=== PATIENT | female | born 1995 | race Caucasian/White ===

== ENCOUNTER → 2017-01-11 | Outpatient (CLI) | payer BC ==
--- NOTE | 2017-01-11 15:21 | Diagnostic Imaging Report ---
INDICATION: survey. TECHNIQUE: Multiple real-time grayscale images were obtained over the gravid uterus. COMPARISON: None. FINDINGS: The heart rate is 149 beats per minute. The placenta is lateral and to the left with no placenta previa. The cervix is 5.7 cm in length and it appears closed. There is no ventriculomegaly, the posterior fossa appears normal, the four-chamber view, the kidneys, cord insertion, urinary bladder, and two umbilical arteries are seen. The stomach is visualized. There is poor visualization of the spine related to position. Biometrical measurements are as follows: Biparietal 5.2 cm, age 21 weeks 6 days. At higher than 98 percentile. Head circumference 18.1 cm, age 20 weeks 4 days, at 71 percentile. Abdominal circumference 15.5 cm, age 20 weeks 5 days, at 71 percentile. Femur length 3.3 cm, age 20 weeks 2 days, at 55 percentile. Sonographic estimate age: 20 weeks 6 days. This compares to a gestational age of 19 weeks and 6 days based on provided ZENA of 06/01/2017. Sonographic estimated date of delivery: 05/25/17. Estimated Weight: 359 gm (+/- 52 gm). LMP percentile: 82%. heart rate: 149 beats per minute. number: 1 of 1. IMPRESSION: The spine is not well seen due to position. A followup exam within 2 weeks is suggested to reevaluate. Dictated by: Dictated on workstation # [id number]
== END ==
LOC: RAD 14:03
PROVIDERS: ATTEND Obstetrics & Gynecology
DX: Z36 Encounter for antenatal screening of mother (principal); Z3A.20 20 weeks gestation of pregnancy
CPT/HCPCS: 76805

== ENCOUNTER 2017-05-29 18:52 | Inpatient (IN) | payer BC, OTHER ==
[~2017-05-29] VITALS: Ht 167.6 cm; Wt 84.4 kg
[2017-05-29 19:10] VITALS: BP 122/79
[2017-05-29 19:30] VITALS: BP 132/80
[2017-05-29] MEDS ORDERED: MINERAL OIL CONCENTRATE 99.9% 15 ML UDC TOP PRN (19:30)
[2017-05-29] MEDS ORDERED: TERBUTALINE INJ 1 MG/ML (BRETHINE) AMP SC PRN (19:30)
[2017-05-29] MEDS ORDERED: FAMOTIDINE 20MG/2ML IV (PEPCID) IVP ONE (19:30)
[2017-05-29] MEDS ORDERED: ONDANSETRON 4 MG/2 ML (SDV) Z0FRAN IVP PRN (19:30)
[2017-05-29] MEDS ORDERED: MISOPROSTOL 100 MCG (CYTOTEC) TAB PO ONE (19:30)
[2017-05-29] MEDS ORDERED: HYDROmorphone (DILAUDID) 2 MG/ML VIAL IVP PRN (19:30)
[2017-05-29 20:30] VITALS: BP 132/80
[2017-05-29] MEDS: D5 LR IV SOLUTION 1,000 ML IV SCH (20:37)
[2017-05-29 21:03] LABS: URINE CREATININE FOR RATIO 37 MG/DL (30-125); URINE PROTEIN FOR RATIO ONLY < 6 MG/DL (6-12)
[2017-05-29 21:14] LABS: BASOPHILS # (AUTO) 0.1 10^3/uL (0.0-0.1); BASOPHILS % (AUTO) 0 % (0-10); EOSINOPHILS # (AUTO) 0.3 10^3/uL (0.0-0.3); EOSINOPHILS % (AUTO) 2 % (0-10); HEMATOCRIT 33 % (35-52); HEMOGLOBIN 11.8 G/DL (11.5-16.0); LYMPHOCYTES # (AUTO) 2.3 X 10^3 (1.0-4.0); LYMPHOCYTES % (AUTO) 16 % (12-44); MEAN CORPUSCULAR HEMOGLOBIN 31 PG (25-34); MEAN CORPUSCULAR HGB CONC 36 G/DL (32-36); MEAN CORPUSCULAR VOLUME 87 FL (80-99); MEAN PLATELET VOLUME 9.4 FL (7.4-10.4); MONOCYTES # (AUTO) 1.3 X 10^3 (0.0-1.0); MONOCYTES % (AUTO) 9 % (0-12); NEUTROPHILS # (AUTO) 10.4 X 10^3 (1.8-7.8); NEUTROPHILS % (AUTO) 73 % (42-75); PLATELET COUNT 243 10^3/uL (130-400); RED BLOOD COUNT 3.81 10^6/uL (4.35-5.85); RED CELL DISTRIBUTION WIDTH 12.4 % (10.0-14.5); WHITE BLOOD COUNT 14.2 10^3/uL (4.3-11.0)
[2017-05-29 21:29] LABS: BAND NEUTROPHILS 1 %; BASOPHILS % (MANUAL) 0 %; EOSINOPHILS % (MANUAL) 2 %; LYMPHOCYTES % (MANUAL) 17 %; MONOCYTES % (MANUAL) 4 %; NEUTROPHILS % (MANUAL) 76 %; RBC MORPH NORMAL
[2017-05-29 21:30] VITALS: BP 128/92
[2017-05-29 21:36] LABS: ALANINE AMINOTRANSFERASE 19 U/L (0-55); ALBUMIN 3.4 GM/DL (3.2-4.5); ALKALINE PHOSPHATASE 132 U/L (40-136); BILIRUBIN,TOTAL 0.3 MG/DL (0.1-1.0); BUN/CREATININE RATIO 14; CARBON DIOXIDE 22 MMOL/L (21-32); CHLORIDE 105 MMOL/L (98-107); CREATININE SERUM 0.72 MG/DL (0.60-1.30); GFR ESTIMATED > 60; GLUCOSE 146 MG/DL (70-105); POTASSIUM 3.5 MMOL/L (3.6-5.0); SODIUM 138 MMOL/L (135-145); TOTAL PROTEIN 6.4 GM/DL (6.4-8.2); URIC ACID 4.7 MG/DL (2.6-7.2)
[2017-05-29 22:30] VITALS: BP 102/60
[2017-05-29 23:30] VITALS: BP 116/70
[2017-05-30] VITALS (77 sets, daily range): BP systolic 96–143; BP diastolic 55–94
[2017-05-30] MEDS: MISOPROSTOL 100 MCG (CYTOTEC) TAB PO SCH ×3 (00:42→07:40)
[2017-05-30] MEDS ORDERED: FAMOTIDINE 20MG/2ML IV (PEPCID) ONE (01:20)
[2017-05-30] MEDS: D5 LR IV SOLUTION 1,000 ML IV SCH ×3 (02:12→19:55)
[2017-05-30] MEDS ORDERED: AMPICILLIN INJECTION 2,000 MG in NS (IVPB) 50 ML IV SCH (05:49)
[2017-05-30] MEDS ORDERED: AMPICILLIN 2000 MG INJECTION (IM/IV) ONE (05:55)
[2017-05-30] MEDS ORDERED: NS (IVPB) 100 ML ONE (05:57)
[2017-05-30] MEDS: CATHETER FLUSH 10 ML SYR IV SCH ×2 (07:39→15:50)
[2017-05-30] MEDS ORDERED: SUFENTA 0.6MCG/ML BUPIVA 0.125 100 ML ONE (10:08)
[2017-05-30] MEDS: AMPICILLIN INJECTION 1,000 MG in NS (IVPB) 50 ML IV SCH ×3 (10:14→18:20)
[2017-05-30] MEDS: EPIDURAL (SUFENTA 0.6MCG/ML BUPIVA 0.125%) 100 ML BAG EPI SCH ×2 (11:10→17:13)
[2017-05-30] MEDS ORDERED: ONDANSETRON 4 MG/2 ML (SDV) Z0FRAN IV PRN (11:15)
[2017-05-30] MEDS ORDERED: NALOXONE 0.4 MG/ML 1 ML (NARCAN) VIAL IV PRN ×2 (11:15)
[2017-05-30] MEDS ORDERED: LACTATED RINGERS 1,000 ML IV SCH (11:15)
[2017-05-30] MEDS ORDERED: METOCLOPRAMIDE INJ 10 MG/2 ML (REGLAN) IV PRN (11:15)
[2017-05-30] MEDS ORDERED: diphenhydrAMINE 50 MG/ML INJ (BENADRYL) IV PRN (11:15)
[2017-05-30] MEDS ORDERED: OXYTOCIN/NORMAL SALINE 500 ML IV SCH (12:05)
[2017-05-30] MEDS ORDERED: FAMOTIDINE 20MG/2ML IV (PEPCID) IVP ONE (14:45)
[2017-05-30] MEDS ORDERED: LACTATED RINGERS 1,000 ML IV ONE (18:00)
[2017-05-30] MEDS ORDERED: LIDOCAINE/EPI 2% 1:200,00 (XYLOCAINE) 10 ML VIAL ONE (19:27)
[2017-05-30] MEDS ORDERED: LIDOCAINE PF 2% 5 ML (XYLOCAINE) VIAL ONE (19:37)
[2017-05-30] MEDS ORDERED: fentaNYL INJECTION 100 MCG/2 ML AMP ONE (20:01)
[2017-05-30] MEDS ORDERED: BUPIVACAINE 0.25% 30 ML (SENSORCAINE) VIAL ONE (20:01)
[2017-05-30] MEDS ORDERED: PROMETHAZINE INJ 25 MG/ML (PHENERGAN) AMP IVP ONE (21:15)
[2017-05-30] MEDS ORDERED: METHYLERGONOVINE 0.2 MG/ML (METHERGINE) AMP ONE (22:58)
[2017-05-30] MEDS ORDERED: ceFAZolin 1,000 MG (ANCEF) VIAL ONE (23:13)
[2017-05-30] MEDS ORDERED: NS (IVPB) 50 ML ONE (23:13)
[2017-05-30] MEDS: OXYTOCIN/NORMAL SALINE 500 ML IV SCH ×2 (23:17→23:47)
--- NOTE | 2017-05-30 23:17 | History & Physical-OB ---
OB - Chief Complaint & HPI Date/Time Date of Admission: Date of Admission: May 29, 2017 at 6:52 pm Time Seen by Provider: 08:10 Chief Complaint/History OB-Reason for Admission/Chief: Induction of Labor Hx : 1 Hx Para: 0 Expected Date of Delivery: May 31, 2017 Gestational Age in Weeks: 39 Indication for induction: other (LE edema, with acute onset GHTN without proteinuria at 39.4 weeks) Admission Nurse Assessment Rev: Yes History of Labs O neg Antibody neg RI RPR NR HBsAg NR HIV NR GC neg GBS + urine culture Allergies and Home Medications Allergies Coded Allergies: Pertussis Vaccines (Verified Allergy, Unknown, 05/29/17) OB - History Hx of Present Care: Yes Ultrasounds: Normal mid trimester US Obstetrical Complications: Gestational Hypertension Medical Complications: None Delivery History Adverse Rxn to Tranfusion: No Patient Past Medical History n/a Social History/Family History Recent Infectious Disease Expo: No Alcohol Use: Denies Use Recreational Drug Use: No Immunizations Hepatitis A: Yes Hepatitis B: Yes Date of Influenza Vaccine: Feb 26, 2017 OB - Admission Exam Physical Exam Vitals: Vital Signs 05/30/17 05/30/17 19:15 21:15 Temp 99.2 Pulse 82 Resp 18 B/P (MAP) 114/60 (78) Pulse Ox 98 O2 Delivery Room Air HEENT: NCAT Heart: Rhythm Normal Lungs: Clear Abdomen: Gravid Extremities: Normal Cervical Dilatation: 1cm Effacement: 75% Station: -1 Membranes: Intact Heart Rate: 130's Accelerations: Accelerations Present Decelerations: No Decelerations Short Term Variability: Present Meat Boner Variability: Average (6-25) Contractions on Admission: 6-10 Minutes Apart Intensity: Mild Hauser Scoring Tool (Modified) Dilation (cm): 1-2cm (1) Effacement (%): 51-79% (2) Descent/Station: -1,0 (2) Cervix Consistency: Soft (2) Cervix Position: Anterior (2) Hauser Score: 8 OB - Assessment/Plan/Diagnosis Assessment Assessment: induction of labor Plan Plan: Induction Induction Method: per Misoprostol Protocol Other Plan Misoprostol oral overnight followed by AROM and pitocin this morning Discharge Diagnosis Diagnosis: 21 yo @ 39.5 Acute GHTN without protienuria LE edema +2-3 GBS pos FENECH,BRADEN S DO May 30, 2017 11:17 pm
--- NOTE | 2017-05-30 23:23 | OB Labor & Delivery Record ---
L&D History Date of Service Date of Service: May 30, 2017 History Expected Date of Delivery: May 31, 2017 Gestational Age in Weeks: 39 Hx : 1 Hx Para: 0 Complications Events: Routine care Operative Indications (Cesarea: N/A-Vaginal Delivery Intrapartal Events: Ineffective Pushing (with repetitive variable decels into the 70s-80s) L&D Stage1 Monitors and Tracing Monitor Mode: External Heart Rate: 135 Station: -1 Vital Signs VS - Last 72 Hours, by Label 05/29/17 05/29/17 05/29/17 05/29/17 19:10 19:30 20:30 21:30 Temp 99.4 99.2 Pulse 88 95 84 71 Resp 16 16 16 16 B/P (MAP) 122/79 (93) 132/80 (97) 132/80 (97) 128/92 (104) Pulse Ox 98 98 O2 Delivery Room Air Room Air Room Air Room Air 05/29/17 05/29/17 05/30/17 05/30/17 22:30 23:30 00:30 01:30 Temp 98.8 98.1 Pulse 80 74 76 77 Resp 14 16 14 B/P (MAP) 102/60 (74) 116/70 (85) 125/83 (97) 143/94 (110) O2 Delivery Room Air Room Air Room Air Room Air 05/30/17 05/30/17 05/30/17 05/30/17 01:31 02:30 03:30 04:30 Temp 98.8 98.0 Pulse 80 65 67 67 B/P (MAP) 127/92 (104) 109/64 (79) 110/74 (86) 101/63 (76) O2 Delivery Room Air Room Air Room Air Room Air 05/30/17 05/30/17 05/30/17 05/30/17 05:30 06:30 07:30 08:00 Temp 98.2 Pulse 63 76 67 B/P (MAP) 100/59 (73) 120/85 (97) 105/60 (75) O2 Delivery Room Air Room Air Room Air 05/30/17 05/30/17 05/30/17 05/30/17 08:30 09:00 09:30 10:00 Temp 98.9 98.6 Pulse 74 77 Resp 16 B/P (MAP) 106/70 (82) 140/90 (107) O2 Delivery Room Air Room Air Room Air Room Air 05/30/17 05/30/17 05/30/17 05/30/17 10:30 10:45 10:50 10:55 Pulse 86 92 82 83 Resp 18 B/P (MAP) 122/81 (95) 134/84 (101) 131/86 (101) 126/88 (101) Pulse Ox 99 100 100 O2 Delivery Room Air Room Air Room Air Room Air 05/30/17 05/30/17 05/30/17 05/30/17 11:00 11:05 11:15 11:18 Pulse 84 85 73 64 Resp 18 B/P (MAP) 132/86 (101) 130/86 (101) 129/85 (100) 130/84 (99) Pulse Ox 100 98 O2 Delivery Room Air Room Air Room Air Room Air 05/30/17 05/30/17 05/30/17 05/30/17 11:20 11:23 11:26 11:30 Pulse 77 73 67 63 B/P (MAP) 134/84 (101) 122/83 (96) 123/74 (90) 126/73 (90) Pulse Ox 100 98 O2 Delivery Room Air Room Air Room Air Room Air 05/30/17 05/30/17 05/30/17 05/30/17 11:35 11:40 11:45 11:50 Temp 98.0 Pulse 72 78 70 83 B/P (MAP) 123/81 (95) 127/81 (96) 126/73 (90) 124/85 (98) Pulse Ox 99 100 98 100 O2 Delivery Room Air Room Air Room Air Room Air 05/30/17 05/30/17 05/30/17 05/30/17 12:00 12:15 12:30 12:45 Pulse 75 91 62 64 Resp 18 B/P (MAP) 121/84 (96) 117/75 (89) 112/74 (87) Pulse Ox 99 100 98 99 O2 Delivery Room Air Room Air Room Air Room Air 05/30/17 05/30/17 05/30/17 05/30/17 13:00 13:15 13:30 13:45 Temp 98.9 Pulse 60 68 58 64 B/P (MAP) 112/73 (86) 111/76 (88) 110/73 (85) 110/74 (86) Pulse Ox 98 98 98 98 O2 Delivery Room Air Room Air Room Air Room Air 05/30/17 05/30/17 05/30/17 05/30/17 14:00 14:15 14:30 14:45 Pulse 71 75 62 Resp 18 B/P (MAP) 102/58 (73) 96/63 (74) 116/71 (86) O2 Delivery Room Air Room Air Room Air Room Air 05/30/17 05/30/17 05/30/17 05/30/17 15:00 15:15 15:30 15:45 Temp 99.8 Pulse 61 69 81 B/P (MAP) 113/72 (86) 113/72 (86) 122/82 (95) 124/80 (95) O2 Delivery Room Air Room Air Room Air Room Air 05/30/17 05/30/17 05/30/17 05/30/17 16:00 16:15 16:30 16:45 Pulse 82 78 81 B/P (MAP) 131/89 (103) 129/73 (91) 130/78 (95) O2 Delivery Room Air Room Air Room Air Room Air 05/30/17 05/30/17 05/30/17 05/30/17 17:00 17:15 17:30 17:45 Temp 98.3 Pulse 92 84 90 82 Resp 18 B/P (MAP) 123/76 (92) 124/83 (97) 139/85 (103) 121/78 (92) Pulse Ox 97 O2 Delivery Room Air Room Air Room Air Room Air 05/30/17 05/30/17 05/30/17 05/30/17 17:50 17:55 18:00 18:15 Pulse 98 86 82 87 Resp 18 B/P (MAP) 136/90 (105) 131/79 (96) 125/85 (98) 128/84 (99) Pulse Ox 98 99 99 99 O2 Delivery Room Air Room Air Room Air Room Air 05/30/17 05/30/17 05/30/17 05/30/17 18:20 18:30 18:45 19:00 Pulse 81 83 77 75 B/P (MAP) 128/85 (99) 130/90 (103) 125/83 (97) 122/78 (93) Pulse Ox 99 100 100 98 O2 Delivery Room Air Room Air Room Air Room Air 05/30/17 05/30/17 05/30/17 05/30/17 19:15 19:30 19:45 20:00 Temp 99.2 Pulse 77 79 82 80 Resp 18 18 18 18 B/P (MAP) 126/83 (97) 132/82 (99) 135/77 (96) 121/72 (88) Pulse Ox 98 99 98 99 O2 Delivery Room Air Room Air Room Air Room Air 05/30/17 05/30/17 05/30/17 05/30/17 20:15 20:30 20:45 21:00 Pulse 73 82 71 73 Resp 18 18 18 18 B/P (MAP) 120/75 (90) 119/78 (92) 121/70 (87) 115/74 (88) Pulse Ox 100 97 97 97 O2 Delivery Room Air Room Air Room Air Room Air 05/30/17 21:15 Pulse 82 Resp 18 B/P (MAP) 114/60 (78) Pulse Ox 98 O2 Delivery Room Air Rupture of Membranes Amniotic Membrane Rupture Time: 0810 Induction/Anesthesia Epidural Cath Placement - Time: 1057 L&D Stage2 Stage Two Stage II Date: May 30, 2017 Monitors and Tracing Monitor Mode: External Heart Rate: 135 Presentation: Vertex Signs of Distress by FHT Signs of Distress Maternal pushing progressed the vertex to +2 to +3 station at which point there began to be repetitive variable decelerations with slow return to baseline down into the 60s to 70s. Maternal pushing became ineffective for approximately 10 minutes leading me to discuss proceeding with low vacuum extraction. Risk of this was covered with mother and father all her questions were answered. The Kiwi vacuum extractor was placed down the mid sagittal suture line and with the next maternal push 500 mg of mercury are applied using the hand pump and then a gentle downward traction is used to extend the ' s head which was LALI around the pubic bone and delivered over a RML episiotomy. Once the head is +4 an outside of the vaginal introitus I release vacuum and I 'm able to deliver the remainder of the using Richens maneuver. This helps to me from extending my episiotomy. There is some mild difficulty delivering the anterior shoulder. A modified Blaise maneuver is used to slide the infant's anterior shoulder at an angle and allow it to come underneath the pubic bone after that the remainders delivery occurs in usual fashion. Cord Descript/Complications Cord Vessel Description: 3 Vessels Delivery Type Delivery Method: Low Vacuum Extraction Anterior Shoulder: Left Episiotomy/Perineal Laceration Laceraction(s)/Extensions: Yes Episiotomy Description: Right Mediolateral (RML repaired in usual fashion) Condition of Infant Delivery 1 minute Comment: 8 5 minute Comment: 9 Notes live male infant weight 8lbs 7oz Condition of Condition of Infant: Living Exam: No Observed Abnormalities Resuscitation Resuscitation: N/A - Spontaneous Resp L&D Stage3 Pictocin Pitocin Administration mu/min: 30 Pitocin ml/hr: 30 Pitocin Administration Comment: pitocin increased white open ran in at delivery of placenta Placenta Delivery Placenta Delivery: Spontaneous Delivery Summary Summary Estimated blood loss (mL): 500 Manual evacuation of the uterus is performed and a small amount of membranes is identified at that time. 0.2 mg of Methergine is given IM to help with uterine atony Attending at delivery: Jose Bess DO Condition of Delivery Examined: Cervix Examined, Uterus Explored Post Hemorrhage: No Condition of Mother stable Condition of Infant (s) stable JOSE BESS DO May 30, 2017 11:23 pm
[2017-05-30] MEDS ORDERED: IBUP-1773 PO (23:28)
[2017-05-30] MEDS ORDERED: FERR325T18 PO (23:28)
[2017-05-30] MEDS ORDERED: ACHD5005 PO (23:28)
[2017-05-30] MEDS ORDERED: DOCU100C37 PO (23:28)
[2017-05-30] MEDS ORDERED: Benzocaine/Menthol TP (23:28)
--- NOTE | 2017-05-30 23:29 | Discharge Inst-Women's Service ---
Discharge Inst-Women's Serv Depart Medication/Instructions New, Converted or Re-Newed RX: RX on Chart Consults/Follow Up Additional Follow Up: Yes Orders/Referrals Dr. Bess in 6 weeks Activity Activity: Activity as Tolerated Driving Instructions: No Driving for 1 Week NO SMOKING: NO SMOKING Nothing Inside Vagina: No Douching, No [place], No Tampons Diet Discharge Diet: No Restrictions Symptoms to Report to : Bleeding Excessive, Pain Increased, Fever Over 101 Degrees F, Vaginal Bleeding Increase, Questions/Concerns For Any Problems or Questions: Contact Your Physician Skin/Wound Care Bathing Instructions: Shower (x 2 weeks or sitz baths) BRADEN BESS DO May 30, 2017 11:29 pm
[2017-05-30] MEDS ORDERED: HYDROcodone/APAP 5 MG/325 MG (LORTAB) TAB PO PRN (23:30)
[2017-05-30] MEDS ORDERED: DIBUCAINE (NUPERCAINAL) 1% OINT 30 GM TOP PRN (23:30)
[2017-05-30] MEDS ORDERED: ceFAZolin INJECTION 1,000 MG in NS (IVPB) 50 ML IV ONE (23:30)
[2017-05-30] MEDS ORDERED: TETANUS,DIPTH,PERTUSS P/F (BOOSTRIX) 0.5 ML VIAL IM ONE (23:30)
[2017-05-30] MEDS ORDERED: BENZOCAINE/MENTHOL (DERMOPLAST) 56 ML CAN TP PRN (23:30)
[2017-05-30] MEDS ORDERED: MEASLES,MUMPS,RUBELLA 1 EA INJ SQ ONE (23:30)
[2017-05-30] MEDS ORDERED: WITCH HAZEL(TUCKS) 40 EA JAR TOP PRN (23:30)
[2017-05-31] VITALS (9 sets, daily range): BP systolic 117–140; BP diastolic 68–87
[2017-05-31] MEDS: IBUPROFEN 600 MG (MOTRIN) TAB PO SCH ×4 (01:23→22:12)
[2017-05-31] MEDS ORDERED: CATHETER FLUSH 10 ML SYR IV SCH (06:00)
[2017-05-31 07:09] LABS: BASOPHILS % (AUTO) 0 % (0-10); EOSINOPHILS # (AUTO) 0.1 10^3/uL (0.0-0.3); EOSINOPHILS % (AUTO) 0 % (0-10); HEMATOCRIT 32 % (35-52); HEMOGLOBIN 11.4 G/DL (11.5-16.0); LYMPHOCYTES # (AUTO) 2.2 X 10^3 (1.0-4.0); LYMPHOCYTES % (AUTO) 9 % (12-44); MEAN CORPUSCULAR HEMOGLOBIN 31 PG (25-34); MEAN CORPUSCULAR HGB CONC 35 G/DL (32-36); MEAN CORPUSCULAR VOLUME 88 FL (80-99); MEAN PLATELET VOLUME 9.7 FL (7.4-10.4); MONOCYTES % (AUTO) 9 % (0-12); NEUTROPHILS # (AUTO) 19.3 X 10^3 (1.8-7.8); NEUTROPHILS % (AUTO) 82 % (42-75); PLATELET COUNT 212 10^3/uL (130-400); RED BLOOD COUNT 3.69 10^6/uL (4.35-5.85); RED CELL DISTRIBUTION WIDTH 12.4 % (10.0-14.5); WHITE BLOOD COUNT 23.6 10^3/uL (4.3-11.0)
[2017-05-31] MEDS: DOCUSATE SODIUM 100 MG (COLACE) CAP PO SCH ×2 (08:07→20:33)
[2017-05-31] MEDS: FERROUS SULF 325 MG (IRON) TAB PO SCH (08:07)
[2017-05-31] MEDS: PRENATAL VITAMIN 1 EA TAB PO SCH (08:07)
--- NOTE | 2017-05-31 10:19 | Postpartum Progress Note ---
Note Note Day # 1 Subjective: Patient is without complaints. Ambulating, voiding. Tolerating a regular diet without nausea or vomiting. Normal lochia. Pain is well controlled with oral pain medications. . Objective: Vital Sign - Last 24 Hours 05/30/17 05/30/17 05/30/17 05/30/17 10:30 10:45 10:50 10:55 Pulse 86 92 82 83 Resp 18 B/P (MAP) 122/81 (95) 134/84 (101) 131/86 (101) 126/88 (101) Pulse Ox 99 100 100 O2 Delivery Room Air Room Air Room Air Room Air 05/30/17 05/30/17 05/30/17 05/30/17 11:00 11:05 11:15 11:18 Pulse 84 85 73 64 Resp 18 B/P (MAP) 132/86 (101) 130/86 (101) 129/85 (100) 130/84 (99) Pulse Ox 100 98 O2 Delivery Room Air Room Air Room Air Room Air 05/30/17 05/30/17 05/30/17 05/30/17 11:20 11:23 11:26 11:30 Pulse 77 73 67 63 B/P (MAP) 134/84 (101) 122/83 (96) 123/74 (90) 126/73 (90) Pulse Ox 100 98 O2 Delivery Room Air Room Air Room Air Room Air 05/30/17 05/30/17 05/30/17 05/30/17 11:35 11:40 11:45 11:50 Temp 98.0 Pulse 72 78 70 83 B/P (MAP) 123/81 (95) 127/81 (96) 126/73 (90) 124/85 (98) Pulse Ox 99 100 98 100 O2 Delivery Room Air Room Air Room Air Room Air 05/30/17 05/30/17 05/30/17 05/30/17 12:00 12:15 12:30 12:45 Pulse 75 91 62 64 Resp 18 B/P (MAP) 121/84 (96) 117/75 (89) 112/74 (87) Pulse Ox 99 100 98 99 O2 Delivery Room Air Room Air Room Air Room Air 05/30/17 05/30/17 05/30/17 05/30/17 13:00 13:15 13:30 13:45 Temp 98.9 Pulse 60 68 58 64 B/P (MAP) 112/73 (86) 111/76 (88) 110/73 (85) 110/74 (86) Pulse Ox 98 98 98 98 O2 Delivery Room Air Room Air Room Air Room Air 05/30/17 05/30/17 05/30/17 05/30/17 14:00 14:15 14:30 14:45 Pulse 71 75 62 Resp 18 B/P (MAP) 102/58 (73) 96/63 (74) 116/71 (86) O2 Delivery Room Air Room Air Room Air Room Air 05/30/17 05/30/17 05/30/17 05/30/17 15:00 15:15 15:30 15:45 Temp 99.8 Pulse 61 69 81 B/P (MAP) 113/72 (86) 113/72 (86) 122/82 (95) 124/80 (95) O2 Delivery Room Air Room Air Room Air Room Air 05/30/17 05/30/17 05/30/17 05/30/17 16:00 16:15 16:30 16:45 Pulse 82 78 81 B/P (MAP) 131/89 (103) 129/73 (91) 130/78 (95) O2 Delivery Room Air Room Air Room Air Room Air 05/30/17 05/30/17 05/30/17 05/30/17 17:00 17:15 17:30 17:45 Temp 98.3 Pulse 92 84 90 82 Resp 18 B/P (MAP) 123/76 (92) 124/83 (97) 139/85 (103) 121/78 (92) Pulse Ox 97 O2 Delivery Room Air Room Air Room Air Room Air 05/30/17 05/30/17 05/30/17 05/30/17 17:50 17:55 18:00 18:15 Pulse 98 86 82 87 Resp 18 B/P (MAP) 136/90 (105) 131/79 (96) 125/85 (98) 128/84 (99) Pulse Ox 98 99 99 99 O2 Delivery Room Air Room Air Room Air Room Air 05/30/17 05/30/17 05/30/17 05/30/17 18:20 18:30 18:45 19:00 Pulse 81 83 77 75 B/P (MAP) 128/85 (99) 130/90 (103) 125/83 (97) 122/78 (93) Pulse Ox 99 100 100 98 O2 Delivery Room Air Room Air Room Air Room Air 05/30/17 05/30/17 05/30/17 05/30/17 19:15 19:30 19:45 20:00 Temp 99.2 Pulse 77 79 82 80 Resp 18 18 18 18 B/P (MAP) 126/83 (97) 132/82 (99) 135/77 (96) 121/72 (88) Pulse Ox 98 99 98 99 O2 Delivery Room Air Room Air Room Air Room Air 05/30/17 05/30/17 05/30/17 05/30/17 20:15 20:30 20:45 21:00 Pulse 73 82 71 73 Resp 18 18 18 18 B/P (MAP) 120/75 (90) 119/78 (92) 121/70 (87) 115/74 (88) Pulse Ox 100 97 97 97 O2 Delivery Room Air Room Air Room Air Room Air 05/30/17 05/30/17 05/30/17 05/30/17 21:15 21:30 21:45 22:00 Pulse 82 77 84 75 Resp 18 18 18 18 B/P (MAP) 114/60 (78) 124/78 (93) 124/76 (92) 125/75 (92) Pulse Ox 98 99 98 98 O2 Delivery Room Air Room Air Room Air Non Rebreather 05/30/17 05/30/17 05/30/17 05/30/17 22:15 22:30 22:37 22:55 Pulse 96 85 114 100 Resp 18 18 18 18 B/P (MAP) 131/61 (84) 120/58 (78) 136/93 (107) 117/55 (75) Pulse Ox 98 O2 Delivery Non Rebreather Non Rebreather Non Rebreather Room Air 05/30/17 05/30/17 05/30/17 05/30/17 23:00 23:08 23:15 23:30 Temp 99.6 99.1 Pulse 94 97 96 88 Resp 18 18 18 18 B/P (MAP) 137/84 (101) 135/83 (100) 130/79 (96) 132/83 (99) O2 Delivery Room Air Room Air Room Air Room Air 05/30/17 05/31/17 05/31/17 05/31/17 23:45 00:00 00:15 00:22 Temp 99.4 99.5 Pulse 90 82 78 77 Resp 18 B/P (MAP) 139/74 (95) 140/68 (92) 130/72 (91) 135/78 (97) O2 Delivery Room Air Room Air Room Air Room Air 05/31/17 05/31/17 05/31/17 00:35 01:00 08:00 Temp 99.9 98.6 Pulse 76 85 90 Resp 18 B/P (MAP) 130/79 (96) 125/78 (94) 117/74 (88) Pulse Ox 98 O2 Delivery Room Air Room Air Intake and Output 05/30/17 05/30/17 05/31/17 15:00 23:00 07:00 Intake Total 2200 ml 500 ml Balance 2200 ml 500 ml Laboratory Tests Test 05/31/17 06:02 Range/Units White Blood Count 23.6 H 4.3-11.0 10^3/uL Red Blood Count 3.69 L 4.35-5.85 10^6/uL Hemoglobin 11.4 L 11.5-16.0 G/DL Hematocrit 32 L 35-52 % Mean Corpuscular Volume 88 80-99 FL Mean Corpuscular Hemoglobin 31 25-34 PG Mean Corpuscular Hemoglobin Concent 35 32-36 G/DL Red Cell Distribution Width 12.4 10.0-14.5 % Platelet Count 212 130-400 10^3/uL Mean Platelet Volume 9.7 7.4-10.4 FL Neutrophils (%) (Auto) 82 H 42-75 % Lymphocytes (%) (Auto) 9 L 12-44 % Monocytes (%) (Auto) 9 0-12 % Eosinophils (%) (Auto) 0 0-10 % Basophils (%) (Auto) 0 0-10 % Neutrophils # (Auto) 19.3 H 1.8-7.8 X 10^3 Lymphocytes # (Auto) 2.2 1.0-4.0 X 10^3 Monocytes # (Auto) 2.0 H 0.0-1.0 X 10^3 Eosinophils # (Auto) 0.1 0.0-0.3 10^3/uL Basophils # (Auto) 0.0 0.0-0.1 10^3/uL Physical Exam: General - Alert and oriented, no apparent distress Abdomen - Soft, appropriately tender to palpation, non-distended, fundus firm at umbilicus Extremities - no edema, negative Tuyet's bilaterally Assessment: PPD 1 VAVD Recovering well, hemodynamically stable Leukocytosis Plan: Routine care. Encourage breast feeding. Encourage ambulation. Ferrous sulfate supplementation. Plan for discharge tomorrow Vitals - Labs Vital Signs - I&O Vital Signs Date Time Temp Pulse Resp B/P (MAP) Pulse Ox O2 Delivery O2 Flow Rate FiO2 05/31/17 08:00 98.6 90 18 117/74 (88) 98 Room Air 05/31/17 01:00 99.9 85 18 125/78 (94) 05/31/17 00:35 76 18 130/79 (96) Room Air 05/31/17 00:22 77 18 135/78 (97) Room Air 05/31/17 00:15 99.5 78 18 130/72 (91) Room Air 05/31/17 00:00 99.4 82 18 140/68 (92) Room Air 05/30/17 23:45 90 18 139/74 (95) Room Air 05/30/17 23:30 99.1 88 18 132/83 (99) Room Air 05/30/17 23:15 99.6 96 18 130/79 (96) Room Air 05/30/17 23:08 97 18 135/83 (100) Room Air 05/30/17 23:00 94 18 137/84 (101) Room Air 05/30/17 22:55 100 18 117/55 (75) Room Air 05/30/17 22:37 114 18 136/93 (107) Non Rebreather 05/30/17 22:30 85 18 120/58 (78) Non Rebreather 05/30/17 22:15 96 18 131/61 (84) 98 Non Rebreather 05/30/17 22:00 75 18 125/75 (92) 98 Non Rebreather 05/30/17 21:45 84 18 124/76 (92) 98 Room Air 05/30/17 21:30 77 18 124/78 (93) 99 Room Air 05/30/17 21:15 82 18 114/60 (78) 98 Room Air 05/30/17 21:00 73 18 115/74 (88) 97 Room Air 05/30/17 20:45 71 18 121/70 (87) 97 Room Air 05/30/17 20:30 82 18 119/78 (92) 97 Room Air 05/30/17 20:15 73 18 120/75 (90) 100 Room Air 05/30/17 20:00 80 18 121/72 (88) 99 Room Air 05/30/17 19:45 82 18 135/77 (96) 98 Room Air 05/30/17 19:30 79 18 132/82 (99) 99 Room Air 05/30/17 19:15 99.2 77 18 126/83 (97) 98 Room Air 05/30/17 19:00 75 122/78 (93) 98 Room Air 05/30/17 18:45 77 125/83 (97) 100 Room Air 05/30/17 18:30 83 130/90 (103) 100 Room Air 05/30/17 18:20 81 128/85 (99) 99 Room Air 05/30/17 18:15 87 128/84 (99) 99 Room Air 05/30/17 18:00 82 18 125/85 (98) 99 Room Air 05/30/17 17:55 86 131/79 (96) 99 Room Air 05/30/17 17:50 98 136/90 (105) 98 Room Air 05/30/17 17:45 98.3 82 121/78 (92) 97 Room Air 05/30/17 17:30 90 139/85 (103) Room Air 05/30/17 17:15 84 124/83 (97) Room Air 05/30/17 17:00 92 18 123/76 (92) Room Air 05/30/17 16:45 Room Air 05/30/17 16:30 81 130/78 (95) Room Air 05/30/17 16:15 78 129/73 (91) Room Air 05/30/17 16:00 82 131/89 (103) Room Air 05/30/17 15:45 99.8 124/80 (95) Room Air 05/30/17 15:30 81 122/82 (95) Room Air 05/30/17 15:15 69 113/72 (86) Room Air 05/30/17 15:00 61 113/72 (86) Room Air 05/30/17 14:45 62 18 116/71 (86) Room Air 05/30/17 14:30 Room Air 05/30/17 14:15 75 96/63 (74) Room Air 05/30/17 14:00 71 102/58 (73) Room Air 05/30/17 13:45 98.9 64 110/74 (86) 98 Room Air 05/30/17 13:30 58 110/73 (85) 98 Room Air 05/30/17 13:15 68 111/76 (88) 98 Room Air 05/30/17 13:00 60 112/73 (86) 98 Room Air 05/30/17 12:45 64 112/74 (87) 99 Room Air 05/30/17 12:30 62 18 117/75 (89) 98 Room Air 05/30/17 12:15 91 121/84 (96) 100 Room Air 05/30/17 12:00 75 99 Room Air 05/30/17 11:50 83 124/85 (98) 100 Room Air 05/30/17 11:45 98.0 70 126/73 (90) 98 Room Air 05/30/17 11:40 78 127/81 (96) 100 Room Air 05/30/17 11:35 72 123/81 (95) 99 Room Air 05/30/17 11:30 63 126/73 (90) 98 Room Air 05/30/17 11:26 67 123/74 (90) 100 Room Air 05/30/17 11:23 73 122/83 (96) Room Air 05/30/17 11:20 77 134/84 (101) Room Air 05/30/17 11:18 64 130/84 (99) Room Air 05/30/17 11:15 73 129/85 (100) 98 Room Air 05/30/17 11:05 85 130/86 (101) Room Air 05/30/17 11:00 84 18 132/86 (101) 100 Room Air 05/30/17 10:55 83 126/88 (101) 100 Room Air 05/30/17 10:50 82 131/86 (101) 100 Room Air 05/30/17 10:45 92 18 134/84 (101) 99 Room Air 05/30/17 10:30 86 122/81 (95) Room Air I & O 05/31/17 07:00 Intake Total 2700 ml Balance 2700 ml Labs Laboratory Tests 05/31/17 06:02: White Blood Count 23.6H, Red Blood Count 3.69L, Hemoglobin 11.4L, Hematocrit 32L , Mean Corpuscular Volume 88, Mean Corpuscular Hemoglobin 31, Mean Corpuscular Hemoglobin Concent 35, Red Cell Distribution Width 12.4, Platelet Count 212, Mean Platelet Volume 9.7, Neutrophils (%) (Auto) 82H, Lymphocytes (%) (Auto) 9L , Monocytes (%) (Auto) 9, Eosinophils (%) (Auto) 0, Basophils (%) (Auto) 0, Neutrophils # (Auto) 19.3H, Lymphocytes # (Auto) 2.2, Monocytes # (Auto) 2.0H, Eosinophils # (Auto) 0.1, Basophils # (Auto) 0.0 BRADEN BESS DO May 31, 2017 10:19
--- NOTE | 2017-05-31 15:08 | Anesthesia-Regional Post-Op ---
Regional Patient Condition Mental Status: Alert, Oriented x3 Circulation: Same as Pre-Op Headache: Absent Sensation: Full Recovery Motor Block: Absent Post Op Complications Complications None Follow Up Care/Instructions Patient Instructions None needed. Anesthesia/Patient Condition Patient is doing well, no complaints, stable vital signs, no apparent adverse anesthesia problems. No complications reported per nursing. ZAIRE LUNA CRNA May 31, 2017 15:08
[2017-06-01] MEDS: IBUPROFEN 600 MG (MOTRIN) TAB PO SCH ×3 (03:23→11:56)
[2017-06-01 05:09] VITALS: BP 95/59
--- NOTE | 2017-06-01 08:17 | Postpartum Progress Note ---
Note Note Day # 2 Subjective: Patient is without complaints. Ambulating, voiding. Tolerating a regular diet without nausea or vomiting. Normal lochia. Pain is well controlled with oral pain medications ,. Objective: Vital Sign - Last 24 Hours 05/31/17 05/31/17 05/31/17 06/01/17 12:00 16:00 20:34 05:09 Temp 97.6 97.3 98.0 97.3 Pulse 84 97 77 79 Resp 18 18 18 18 B/P (MAP) 120/76 (91) 126/81 (96) 129/87 (101) 95/59 (71) Pulse Ox 98 99 96 96 O2 Delivery Room Air Room Air Room Air Room Air Physical Exam: General - Alert and oriented, no apparent distress Abdomen - Soft, appropriately tender to palpation, non-distended, fundus firm at umbilicus Extremities - no edema, negative Tuyet's bilaterally Assessment: 2 post- day VAVD Recovering well, hemodynamically stable Afebrile Plan: Routine care. Encourage breast feeding. Encourage ambulation. Ferrous sulfate supplementation. Plan for discharge today Vitals - Labs Vital Signs - I&O Vital Signs Date Time Temp Pulse Resp B/P (MAP) Pulse Ox O2 Delivery O2 Flow Rate FiO2 06/01/17 05:09 97.3 79 18 95/59 (71) 96 Room Air 05/31/17 20:34 98.0 77 18 129/87 (101) 96 Room Air 05/31/17 16:00 97.3 97 18 126/81 (96) 99 Room Air 05/31/17 12:00 97.6 84 18 120/76 (91) 98 Room Air BRADEN BESS DO Jun 01, 2017 08:17
[2017-06-01] MEDS: FERROUS SULF 325 MG (IRON) TAB PO SCH (09:23)
[2017-06-01] MEDS: DOCUSATE SODIUM 100 MG (COLACE) CAP PO SCH (09:23)
[2017-06-01] MEDS: PRENATAL VITAMIN 1 EA TAB PO SCH (09:23)
[2017-06-01 11:00] VITALS: BP 123/85
[2017-06-01 15:00] VITALS: BP 123/85
== END 2017-06-01 15:00 | disposition home or self-care (01) | DRG 767 ==
LOC: LDRP 18:52
PROVIDERS: ADMIT Obstetrics & Gynecology; ATTEND Obstetrics & Gynecology
PROC: 10D07Z6 Extraction of Products of Conception, Vacuum, Via Natural or Artificial Opening (ICD-10-PCS; principal; 2017-05-30)
PROC: 0W8NXZZ Division of Female Perineum, External Approach (ICD-10-PCS; 2017-05-30)
PROC: 10D17Z9 Manual Extraction of Products of Conception, Retained, Via Natural or Artificial Opening (ICD-10-PCS; 2017-05-30)
DX: O14.03 Mild to moderate pre-eclampsia, third trimester (principal); O99.13 Other diseases of the blood and blood-forming organs and certain disorders involving the immune mechanism complicating the puerperium; D72.829 Elevated white blood cell count, unspecified; O76 Abnormality in fetal heart rate and rhythm complicating labor and delivery; O62.2 Other uterine inertia; O99.820 Streptococcus B carrier state complicating pregnancy; O26.893 Other specified pregnancy related conditions, third trimester; Z67.41 Type O blood, Rh negative; Z3A.39 39 weeks gestation of pregnancy; Z37.0 Single live birth
CPT/HCPCS: 36415; 80053; 82570; 83033; 84156; 84550; 85007; 85025; 85027; 86850; 86900; 86901

== ENCOUNTER → 2019-09-04 | Outpatient (CLI) | payer BC, MEDICAID ==
[~2019-09-04] MED LIST: ACHD5005 PO; Benzocaine/Menthol TP; DOCU100C37 PO; FERR325T18 PO; IBUP-1773 PO
--- NOTE | 2019-09-04 16:24 | Diagnostic Imaging Report ---
INDICATION: survey, patient. TECHNIQUE: Multiple real-time grayscale images were obtained over the gravid uterus. COMPARISON: None during this . FINDINGS: A single live intrauterine fetus is seen measuring 21 weeks 5 days in size by composite measurements with heart rate of 153 BPM. Sonographic EDC is 01/10/2020. Cervical length is 4.2 cm. The placenta is posterior and somewhat low lying, although its tip is about a centimeter above the internal cervical os. Amniotic fluid is qualitatively normal. Maternal adnexa could not be visualized. survey shows normal-appearing kidneys, bladder, and stomach. Normal-appearing intracranial ventricles are seen. There is a normal-appearing four-chamber heart view. Three-vessel cord and cord insertion were normal. Views of the spine were unremarkable. Biometrical measurements are as follows: Biparietal 5.30 cm, age 22 weeks 1 days. Head circumference 19.49 cm, age 21 weeks 5 days. Abdominal circumference 16.06 cm, age 21 weeks 2 days. Femur length 3.65 cm, age 21 weeks 5 days. Sonographic estimate age: 21 weeks 5 days. Sonographic estimated date of delivery: 01/10/2020. Estimated Weight: 423 gm (+/- 62 gm). LMP percentile: 52%. heart rate: 153 beats per minute. number: 1 of 1. IMPRESSION: Single live intrauterine fetus measuring 21 weeks 5 days in size. survey was unremarkable. Placenta was somewhat low lying but appears to be above the cervical os, consider follow-up as clinically warranted. Dictated by: Dictated on workstation # [employer]
== END ==
LOC: RAD 10:28
PROVIDERS: ATTEND Obstetrics & Gynecology
DX: Z36.89 Encounter for other specified antenatal screening (principal); Z3A.21 21 weeks gestation of pregnancy
CPT/HCPCS: 76805

== ENCOUNTER 2020-01-12 18:45 | Inpatient (IN) | payer MEDICAID ==
[~2020-01-12] VITALS: Ht 167.7 cm; Wt 85.9 kg
[2020-01-12] MEDS ORDERED: D5 LR IV SOLUTION 1,000 ML IV ONE (19:44)
[2020-01-12] MEDS ORDERED: MINERAL OIL CONCENTRATE 99.9% 15 ML UDC TOP PRN (19:45)
[2020-01-12] MEDS ORDERED: MISOPROSTOL 100 MCG (CYTOTEC) TAB PO NR (19:45)
[2020-01-12] MEDS: D5 LR IV SOLUTION 1,000 ML IV SCH ×2 (20:10→23:40)
[2020-01-12 20:20] VITALS: BP 126/78
[2020-01-12 20:24] LABS: BASOPHILS # (AUTO) 0.1 10^3/uL (0.0-0.1); BASOPHILS % (AUTO) 0 % (0-10); EOSINOPHILS # (AUTO) 0.3 10^3/uL (0.0-0.3); EOSINOPHILS % (AUTO) 2 % (0-10); HEMATOCRIT 35 % (35-52); HEMOGLOBIN 12.2 g/dL (11.5-16.0); LYMPHOCYTES # (AUTO) 2.3 10^3/uL (1.0-4.0); LYMPHOCYTES % (AUTO) 18 % (12-44); MEAN CORPUSCULAR HEMOGLOBIN 31 pg (25-34); MEAN CORPUSCULAR HGB CONC 35 g/dL (32-36); MEAN CORPUSCULAR VOLUME 88 fL (80-99); MEAN PLATELET VOLUME 9.7 fL (9.0-12.2); MONOCYTES # (AUTO) 1.1 10^3/uL (0.0-1.0); MONOCYTES % (AUTO) 9 % (0-12); NEUTROPHILS % (AUTO) 70 % (42-75); PLATELET COUNT 232 10^3/uL (130-400); WHITE BLOOD COUNT 12.8 10^3/uL (4.3-11.0)
[2020-01-12 20:55] VITALS: BP 118/73
[2020-01-12 21:30] VITALS: BP 115/78
[2020-01-12] MEDS ORDERED: CATHETER FLUSH 10 ML SYR IV SCH (22:00)
[2020-01-12 22:30] VITALS: BP 98/55
[2020-01-12 23:30] VITALS: BP 104/63
[2020-01-12] MEDS ORDERED: MISOPROSTOL 100 MCG (CYTOTEC) TAB PO SCH (23:45)
[2020-01-13] VITALS (41 sets, daily range): BP systolic 93–145; BP diastolic 55–92
[2020-01-13] MEDS ORDERED: FLU QUADRIvalent (3YOA+) 60 mcg/0.5 ml 2020-21 (AFLURIA) IM ONE (06:45)
[2020-01-13] MEDS: D5 LR IV SOLUTION 1,000 ML IV SCH ×2 (07:39→13:18)
--- NOTE | 2020-01-13 08:38 | History & Physical-OB ---
OB - Chief Complaint & HPI Date/Time Date of Admission: Date of Admission: Jan 12, 2020 at 6:45 pm Date seen by a Provider: Jan 13, 2020 Time Seen by a Provider: 07:45 Chief Complaint/History OB-Reason for Admission/Chief: Induction of Labor Hx : 2 Hx Para: 1 Expected Date of Delivery: Jan 13, 2020 Gestational Age in Weeks: 39 Gestational Age in Days: 6 Indication for induction: post dates, maternal discomfort Admission Nurse Assessment Rev: Yes History of Labs O neg Antibody neg RI RPR NR HIV NR HBsAg NR GC neg GBS neg Allergies and Home Medications Allergies Coded Allergies: Pertussis Vaccines (Verified Allergy, Unknown, 05/29/17) Home Medications Docusate Sodium 100 Mg Capsule, 100 MG PO BID PRN for CONSTIPATION-1ST LINE Prescribed by: BRADEN BESS on 05/30/172327 Ferrous Sulfate 325 Mg Tablet, 325 MG PO DAILY Prescribed by: BRADEN BESS on 05/30/172327 Hydrocodone Bit/Acetaminophen 1 Tab Tab, 1-2 TAB PO Q4H PRN for PAIN-MODERATE Prescribed by: BRADEN BESS on 05/30/172327 Ibuprofen 600 Mg Tablet, 600 MG PO Q6H Prescribed by: BRADEN BESS on 05/30/172327 [Benzocaine/Menthol] 56 ML AEROSOL, 56 ML TP UD PRN for PAIN- SEE INSTRUCTIONS EXTERNAL USE ONLY Prescribed by: BRADEN BESS on 05/30/172327 Patient Home Medication List Home Medication List Reviewed: Yes OB - History Hx of Present Care: Yes Ultrasounds: Normal mid trimester US Obstetrical Complications: None Medical Complications: None Delivery History Adverse Rxn to Tranfusion: No Patient Past Medical History n/a Social History/Family History Recent Infectious Disease Expo: No Alcohol Use: Denies Use Recreational Drug Use: No Immunizations Hepatitis A: Yes Hepatitis B: Yes Date of Influenza Vaccine: Feb 26, 2017 OB - Admission Exam Physical Exam Vitals: Vital Signs 01/12/20 01/13/20 22:30 06:30 Temp 36.6 Pulse 73 Resp 20 B/P (MAP) 110/73 (85) Pulse Ox 98 O2 Delivery Room Air HEENT: NCAT Heart: Rhythm Normal Lungs: Clear Abdomen: Gravid Extremities: Normal Reflexes: Normal Cervical Dilatation: 2cm Effacement: 75% Station: -1 Membranes: Intact Heart Rate: 130's Accelerations: Accelerations Present Decelerations: No Decelerations Short Term Variability: Present Group Home Variability: Average (6-25) Contractions on Admission: 6-10 Minutes Apart Intensity: Mild Hauser Scoring Tool (Modified) Dilation (cm): 1-2cm (1) Effacement (%): 51-79% (2) Descent/Station: -1,0 (2) Cervix Consistency: Soft (2) Cervix Position: Anterior (2) Add 1 point for: Each previous vaginal delivery (1) Hauser Score: 10 Labs Laboratory Tests Test 01/12/20 20:05 Range/Units White Blood Count 12.8 H 4.3-11.0 10^3/uL Red Blood Count 4.00 3.80-5.11 10^6/uL Hemoglobin 12.2 11.5-16.0 g/dL Hematocrit 35 35-52 % Mean Corpuscular Volume 88 80-99 fL Mean Corpuscular Hemoglobin 31 25-34 pg Mean Corpuscular Hemoglobin Concent 35 32-36 g/dL Red Cell Distribution Width 11.9 10.0-14.5 % Platelet Count 232 130-400 10^3/uL Mean Platelet Volume 9.7 9.0-12.2 fL Immature Granulocyte % (Auto) 1 % Neutrophils (%) (Auto) 70 42-75 % Lymphocytes (%) (Auto) 18 12-44 % Monocytes (%) (Auto) 9 0-12 % Eosinophils (%) (Auto) 2 0-10 % Basophils (%) (Auto) 0 0-10 % Neutrophils # (Auto) 9.0 H 1.8-7.8 10^3/uL Lymphocytes # (Auto) 2.3 1.0-4.0 10^3/uL Monocytes # (Auto) 1.1 H 0.0-1.0 10^3/uL Eosinophils # (Auto) 0.3 0.0-0.3 10^3/uL Basophils # (Auto) 0.1 0.0-0.1 10^3/uL Immature Granulocyte # (Auto) 0.1 0.0-0.1 10^3/uL OB - Assessment/Plan/Diagnosis Assessment Assessment: induction of labor Admission Dx 24 yo @ 39.6 Induction of labor GBS neg Admission Status: Inpatient Order (span 2 midnights) Reason for Inpatient Admission: Induction of labor at 39 weeks Plan Plan: Induction Induction Method: per Misoprostol Protocol BRADEN BESS DO Jan 13, 2020 8:38 am
[2020-01-13] MEDS ORDERED: OXYTOCIN PRE-MIX DRIP 500 ML IV ONE (08:48)
[2020-01-13] MEDS ORDERED: OXYTOCIN PRE-MIX DRIP 500 ML IV SCH ×2 (08:53→14:59)
[2020-01-13] MEDS ORDERED: fentaNYL 2 mcg/ml BUPIVA 0.125 100 ML ONE (09:55)
[2020-01-13] MEDS ORDERED: fentaNYL INJECTION 100 MCG/2 ML AMP ONE ×2 (10:03→13:59)
[2020-01-13] MEDS ORDERED: LACTATED RINGERS 1,000 ML IV ONE ×2 (10:05)
[2020-01-13] MEDS ORDERED: fentaNYL INJECTION 100 MCG/2 ML AMP INJ ONE (10:15)
[2020-01-13] MEDS ORDERED: EPIDURAL (fentaNYL 2 MCG/ML BUPIVA 0.125%)100 ML BAG EPI PRN (10:15)
[2020-01-13] MEDS ORDERED: ONDANSETRON 4 MG/2 ML (SDV) Z0FRAN IV PRN (10:15)
[2020-01-13] MEDS ORDERED: NALOXONE 0.4 MG/ML 1 ML (NARCAN) VIAL IV PRN (10:15)
[2020-01-13] MEDS ORDERED: BUPIVACAINE 0.25% 30 ML (SENSORCAINE) VIAL ONE (10:33)
[2020-01-13] MEDS ORDERED: LIDOCAINE PF 2% 5 ML (XYLOCAINE) VIAL ONE ×2 (10:33→13:26)
[2020-01-13] MEDS ORDERED: ceFAZolin 2 GM IV Premixed 50 ML ONE (13:26)
[2020-01-13] MEDS ORDERED: ceFAZolin 2 GM IV Premixed 50 ML IV ONE (13:30)
[2020-01-13] MEDS ORDERED: CITRIC ACID/SOB CIT (BICITRA) 30 ML UDC ONE (13:31)
[2020-01-13] MEDS ORDERED: FAMOTIDINE 20MG/2ML IV (PEPCID) ONE (13:31)
[2020-01-13] MEDS ORDERED: METOCLOPRAMIDE INJ 10 MG/2 ML (REGLAN) ONE (13:31)
[2020-01-13] MEDS ORDERED: ONDANSETRON 4 MG/2 ML (SDV) Z0FRAN ONE (14:28)
[2020-01-13] MEDS ORDERED: KETOROLAC 30 MG/ML VIAL ONE (14:28)
[2020-01-13] MEDS ORDERED: BUPIVACAINE 0.5% 30 ML (SENSORCAINE) VIAL ONE (14:33)
[2020-01-13] MEDS ORDERED: MEASLES,MUMPS,RUBELLA 1 EA INJ SC SCH (15:00)
[2020-01-13] MEDS ORDERED: ONDANSETRON 4 MG/2 ML (SDV) Z0FRAN IVP PRN ×2 (15:00)
[2020-01-13] MEDS ORDERED: HYDROmorphone 2 MG/ML VIAL (DILAUDID) IV ONE (15:00)
[2020-01-13] MEDS ORDERED: IBUPROFEN 600 MG (MOTRIN) TAB PO SCH (15:00)
[2020-01-13] MEDS ORDERED: KETOROLAC 30 MG/ML VIAL IV SCH (15:00)
[2020-01-13] MEDS: HYDROcodone/APAP 5 MG/325 MG (LORTAB) TAB PO PRN (18:22)
[2020-01-13] MEDS: METOCLOPRAMIDE 10 MG (REGLAN) TAB PO SCH (19:08)
[2020-01-13] MEDS: DOCUSATE SODIUM 100 MG (COLACE) CAP PO SCH (20:30)
[2020-01-13] MEDS ORDERED: CITRIC ACID/SOB CIT (BICITRA) 30 ML UDC PO ONE (21:00)
[2020-01-13] MEDS ORDERED: METOCLOPRAMIDE INJ 10 MG/2 ML (REGLAN) IV ONE (21:00)
[2020-01-13] MEDS ORDERED: FAMOTIDINE 20MG/2ML IV (PEPCID) IV ONE (21:00)
[2020-01-13] MEDS ORDERED: CATHETER FLUSH 10 ML SYR IV SCH (22:00)
[2020-01-14] MEDS: METOCLOPRAMIDE 10 MG (REGLAN) TAB PO SCH ×4 (00:54→20:18)
--- NOTE | 2020-01-14 01:46 | OPERATIVE REPORT ---
DATE OF SERVICE: PREOPERATIVE DIAGNOSES: 1. A 24-year-old G2, P1 at 40 weeks' gestation. 2. intolerance of labor. POSTOPERATIVE DIAGNOSES. 1. A 24-year-old G2, P1 at 40 weeks' gestation. 2. intolerance of labor. PROCEDURE: Primary low transverse section. SURGEON: Jose Abbott DO MARITIME ENGINEER: Paras Telles, MS3. ANESTHESIA: Epidural, which was bolused. ESTIMATED BLOOD LOSS: 700 mL. URINE OUTPUT: 1200 ml clear FLUIDS: 1700 mL lactated Ringer's solution. FINDINGS: Alive male , weight pending. Apgars of 8 and 9. Grossly normal appearing uterus, bilateral fallopian tubes. SPECIMEN SENT: Placenta. INDICATIONS FOR PROCEDURE: This 24-year-old female is a patient who was admitted for induction of labor due to 40 weeks' gestation at the patient's request. She was using p.o. Cytotec overnight and artificial rupture of membranes was performed this morning, the patient was started on Pitocin augmentation. After receiving her epidural, the patient had a few variable decelerations; however, this was followed by a period of tachysystole and recurrent variable decelerations with prolonged bradycardia. As we tried to reposition the patient and try oxygen supplementation on a nonrebreather mask, the fetus continued to look nonreassuring due to the nonreassuring heart status, I discussed with the patient proceed with emergent primary . Risks of procedure were discussed with the patient in detail and after all of her questions were answered, consent was obtained, the patient was taken to the operating room. OPERATIVE REPORT IN DETAIL: Once in the operating room and epidural anesthesia was bolused and found to be adequate, placed in the supine position with leftward tilt, prepped and draped in normal sterile fashion. Timeout was performed and anesthesia was tested. I then make a Pfannenstiel skin incision with a knife and carried it down to the underlying fascia using Bovie cautery. The fascial incision extended laterally using Bovie cautery. Superior aspect of the fascial incision was then grasped with Francois clamps, tented up and dissected off the underlying rectus muscles. The inferior aspect of the fascial incision was then grasped with Francois clamps, tented up and dissected off the underlying rectus muscles. Rectus muscles were then dissected down the midline using Pressley scissors, which exposed the peritoneum, which I entered bluntly and extended using blunt traction. Mark ring retractor was placed in the peritoneal incision, which offers excellent lateral sidewall retraction. The lower uterine segment was found to be thinned out. I make a low transverse incision to the vesicouterine peritoneum and bluntly dissect this off of the lower uterine segment creating a bladder flap. I then proceeded with my myotomy until membranes were visualized, at which point, I extended the uterine incision laterally and superiorly using bandage scissors. The infant was found in vertex presentation. With gentle fundal pressure, the infant's head was delivered through the incision where the nares and oropharynx were then bulb suctioned. Anterior and posterior shoulders were delivered. Infant was then brought to the operative field with cord doubly clamped and cut and was handed off to waiting nurses in attendance. Cord blood was collected, 3-vessel cord with intact placenta was delivered spontaneously thereafter. IV Pitocin was initiated to facilitate uterine contraction. Uterine fundus confirmed with bimanual massage. Uterus was then exteriorized and cleared of all endometrial clots and debris. I then proceeded with closing the uterine incision using 0 Vicryl suture in running locked fashion. Second layer of imbricating 0 Monocryl was placed. Excellent hemostasis was noted after doing this. I then placed the uterus back within the pelvis and copiously irrigated the pelvis using normal saline. Once again, there was no active bleeding noted from any of my dissection planes. I placed Interceed antiadhesive over my low transverse incision and removed the Mark ring retractor and I then proceeded with closing the peritoneum using 3-0 Vicryl suture in running fashion. The rectus muscle reapproximated using 3-0 Vicryl suture in interrupted fashion. The fascia was reapproximated using 0 Vicryl suture in running fashion. Subcutaneous tissue was reapproximated using 3-0 plain interrupted subcutaneous stitch and skin reapproximated using 4-0 Monocryl running subcuticular. Dermabond was applied to incision and sterile dressing with adhesive white tape. The patient tolerated the procedure well and was taken to recovery area in stable condition. Lap and sponge counts were correct at the end of the procedure. Instrument counts correct as well. Two grams of Ancef were given preoperatively for infection prophylaxis. Job ID: [id number] DocumentID: [id number] Dictated Date: 01/13/2020 17:15:01 Hospital Administrative Assistant Date: 01/14/2020 01:45:45 Dictated By: DO LINDA HOGAN
[2020-01-14 01:58] VITALS: BP 112/69
[2020-01-14] MEDS ORDERED: IBUPROFEN 600 MG (MOTRIN) TAB PO ONE ×2 (02:16→07:49)
[2020-01-14] MEDS: IBUPROFEN 600 MG (MOTRIN) TAB PO SCH ×4 (02:27→20:18)
[2020-01-14] MEDS: HYDROcodone/APAP 5 MG/325 MG (LORTAB) TAB PO PRN ×2 (05:08→14:36)
[2020-01-14 05:36] VITALS: BP 137/78
[2020-01-14 06:15] LABS: BASOPHILS % (AUTO) 0 % (0-10); EOSINOPHILS # (AUTO) 0.1 10^3/uL (0.0-0.3); EOSINOPHILS % (AUTO) 0 % (0-10); HEMATOCRIT 28 % (35-52); HEMOGLOBIN 9.5 g/dL (11.5-16.0); LYMPHOCYTES # (AUTO) 2.4 10^3/uL (1.0-4.0); LYMPHOCYTES % (AUTO) 12 % (12-44); MEAN CORPUSCULAR HEMOGLOBIN 31 pg (25-34); MEAN CORPUSCULAR HGB CONC 34 g/dL (32-36); MEAN CORPUSCULAR VOLUME 89 fL (80-99); MEAN PLATELET VOLUME 9.7 fL (9.0-12.2); MONOCYTES # (AUTO) 1.7 10^3/uL (0.0-1.0); MONOCYTES % (AUTO) 8 % (0-12); NEUTROPHILS # (AUTO) 16.6 10^3/uL (1.8-7.8); NEUTROPHILS % (AUTO) 79 % (42-75); PLATELET COUNT 196 10^3/uL (130-400)
--- NOTE | 2020-01-14 06:52 | Anesthesia-Regional Post-Op ---
Regional Patient Condition Mental Status: Alert, Oriented x3 Circulation: Same as Pre-Op Headache: Absent Sensation: Full Recovery Motor Block: Absent Post Op Complications Complications None Follow Up Care/Instructions Patient Instructions None needed. Anesthesia/Patient Condition Patient is doing well, no complaints, stable vital signs, no apparent adverse anesthesia problems. No complications reported per nursing. STEVE MCKEON CRNA Jan 14, 2020 06:52
[2020-01-14 08:00] VITALS: BP 113/66
[2020-01-14] MEDS: DOCUSATE SODIUM 100 MG (COLACE) CAP PO SCH ×2 (08:09→20:18)
--- NOTE | 2020-01-14 08:38 | Postpartum Progress Note ---
Note Note Day # 1 Subjective: Patient is without complaints. Ambulating, voiding. Tolerating a regular diet without nausea or vomiting. Normal lochia. Pain is well controlled with oral pain medications. Objective: Physical Exam: General - Alert and oriented, no apparent distress Abdomen - Soft, appropriately tender to palpation, non-distended, fundus firm at umbilicus Extremities - no edema, negative Tuyet's bilaterally Incision- c/d/i Assessment: POD 1 PLTCS Acute blood loss anemia Reactive leukocytosis- afebrile Plan: Routine care. Encourage breast feeding. Encourage ambulation. Ferrous sulfate supplementation. Plan for discharge tomorrow Vitals - Labs Vital Signs - I&O Vital Signs Date Time Temp Pulse Resp B/P (MAP) Pulse Ox O2 Delivery O2 Flow Rate FiO2 01/14/20 05:36 37.0 66 18 137/78 (97) 99 Room Air 01/14/20 01:58 36.6 63 18 112/69 (83) 99 Room Air 01/13/20 22:13 36.8 74 18 113/69 (84) 99 Room Air 01/13/20 17:00 37.0 66 18 120/71 (87) 99 Room Air 01/13/20 16:00 37.0 66 16 117/63 (81) 98 Room Air 01/13/20 15:35 36.7 16 105/72 (83) 99 Room Air 01/13/20 15:30 Room Air 01/13/20 15:30 16 102/68 (79) 100 Room Air 01/13/20 15:20 14 105/79 (88) 100 Room Air 01/13/20 15:15 Room Air 01/13/20 15:10 14 100/81 (87) 99 Room Air 01/13/20 15:00 Room Air 01/13/20 14:55 18 96/65 (75) 99 Room Air 01/13/20 14:42 Room Air 01/13/20 14:42 36.6 16 96/62 (73) 99 Room Air 01/13/20 13:41 36.4 01/13/20 13:30 6 18 120/73 (89) Non Rebreather 15.00 01/13/20 13:15 67 18 117/75 (89) 100 Non Rebreather 15.00 01/13/20 13:00 60 18 106/74 (85) 100 Non Rebreather 15.00 01/13/20 12:45 62 18 110/76 (87) 100 Non Rebreather 15.00 01/13/20 12:30 36.5 51 18 103/70 (81) 98 Room Air 01/13/20 12:15 61 18 115/73 (87) 98 Room Air 01/13/20 12:00 55 18 107/64 (78) 98 Room Air 01/13/20 11:45 62 18 117/73 (88) 99 Room Air 01/13/20 11:30 60 18 110/78 (89) 98 Room Air 01/13/20 11:15 36.5 56 18 111/80 (90) 98 Room Air 01/13/20 11:00 67 18 111/75 (87) 98 Room Air 01/13/20 10:45 68 18 116/81 (93) 98 Room Air 01/13/20 10:31 68 18 127/82 (97) 100 Room Air 01/13/20 10:30 76 18 122/85 (97) 100 Room Air 01/13/20 10:26 68 18 120/86 (97) 100 Room Air 01/13/20 10:23 77 18 120/85 (97) 100 Room Air 01/13/20 10:19 76 18 145/92 (109) 100 Room Air 01/13/20 10:15 75 18 130/90 (103) 100 Room Air 01/13/20 10:15 Room Air 01/13/20 10:00 36.3 74 18 105/70 (82) Room Air 01/13/20 09:45 83 18 112/77 (89) Room Air 01/13/20 09:30 85 18 116/81 (93) Room Air 01/13/20 09:15 77 18 120/76 (91) Room Air 01/13/20 09:00 83 18 138/83 (101) Room Air I & O 01/14/20 07:00 Intake Total 5390 ml Output Total 5700 ml Balance -310 ml Labs Laboratory Tests 01/14/20 05:46: White Blood Count 21.0H, Red Blood Count 3.11L, Hemoglobin 9.5#L, Hematocrit 28L , Mean Corpuscular Volume 89, Mean Corpuscular Hemoglobin 31, Mean Corpuscular Hemoglobin Concent 34, Red Cell Distribution Width 12.0, Platelet Count 196, Mean Platelet Volume 9.7, Immature Granulocyte % (Auto) 1, Neutrophils (%) (Auto) 79H, Lymphocytes (%) (Auto) 12, Monocytes (%) (Auto) 8, Eosinophils (%) (Auto) 0, Basophils (%) (Auto) 0, Neutrophils # (Auto) 16.6H, Lymphocytes # (Auto) 2.4, Monocytes # (Auto) 1.7H, Eosinophils # (Auto) 0.1, Basophils # (Auto) 0.0, Immature Granulocyte # (Auto) 0.1 BRADEN BESS DO Jan 14, 2020 8:38 am
[2020-01-14] MEDS ORDERED: DCS100C PO (08:41)
[2020-01-14] MEDS ORDERED: FERR325T18 PO (08:41)
[2020-01-14] MEDS ORDERED: IBUP-844 PO (08:41)
[2020-01-14] MEDS ORDERED: ACHD5005 PO (08:41)
--- NOTE | 2020-01-14 08:42 | Discharge Inst-Women's Service ---
Discharge Inst-Women's Serv Depart Medication/Instructions New, Converted or Re-Newed RX: RX on Chart Final Diagnosis POD 2 PLTCS, Acute blood loss anemia Problems Reviewed?: Yes Consults/Follow Up Additional Follow Up: Yes Orders/Referrals Dr. Abbott in 7-10 days, and in 6 weeks Activity Activity: Activity as Tolerated Driving Instructions: No Driving for 1 Week NO SMOKING: NO SMOKING Nothing Inside Vagina: No Douching, No [place], No Tampons Diet Discharge Diet: No Restrictions Symptoms to Report to : Bleeding Excessive, Pain Increased, Fever Over 101 Degrees F, Vaginal Bleeding Increase, Questions/Concerns For Any Problems or Questions: Contact Your Physician Skin/Wound Care Infection Signs and Symptoms: Increased Redness, Foul Odor of Wound, Increased Drainage, Skin Itchy or Has a Rash, Increased Swelling, Temperature Above 101 F Operative Area Clean and Dry: Keep Incision Clean/Dry Stitches/Radha/Dermabond: Dermabond, Care of Stitches Bathing Instructions: BRADEN Thakur DO Jan 14, 2020 8:42 am
[2020-01-14] MEDS: FERROUS SULF 325 MG (IRON) TAB PO SCH ×2 (09:38→18:20)
[2020-01-14 14:30] VITALS: BP 117/71
[2020-01-14 20:00] VITALS: BP 126/73
[2020-01-15 02:00] VITALS: BP 115/66
[2020-01-15] MEDS: IBUPROFEN 600 MG (MOTRIN) TAB PO SCH ×2 (02:37→08:58)
[2020-01-15] MEDS: METOCLOPRAMIDE 10 MG (REGLAN) TAB PO SCH ×2 (02:37→08:58)
[2020-01-15] MEDS: HYDROcodone/APAP 5 MG/325 MG (LORTAB) TAB PO PRN (03:33)
--- NOTE | 2020-01-15 08:23 | Postpartum Progress Note ---
Note Note Day # 2 Subjective: Patient is without complaints. Ambulating, voiding. Tolerating a regular diet without nausea or vomiting. Normal lochia. Pain is well controlled with oral pain medications. Objective: Physical Exam: General - Alert and oriented, no apparent distress Abdomen - Soft, appropriately tender to palpation, non-distended, fundus firm at umbilicus Extremities - no edema, negative Tuyet's bilaterally Incision- c/d/i Assessment: POD 2 PLTCS Acute blood loss anemia Plan: Routine care. Encourage breast feeding. Encourage ambulation. Ferrous sulfate supplementation. Plan for discharge today Vitals - Labs Vital Signs - I&O Vital Signs Date Time Temp Pulse Resp B/P (MAP) Pulse Ox O2 Delivery O2 Flow Rate FiO2 01/15/20 02:00 36.8 75 18 115/66 (82) 99 Room Air 01/14/20 20:00 36.9 97 18 126/73 (90) 99 Room Air 01/14/20 14:30 36.7 80 18 117/71 (86) 99 Room Air I & O 01/15/20 07:00 Intake Total 2240 ml Output Total 2650 ml Balance -410 ml BRADEN BESS DO Jan 15, 2020 08:23
[2020-01-15 08:55] VITALS: BP 125/76
[2020-01-15] MEDS: FERROUS SULF 325 MG (IRON) TAB PO SCH (08:58)
[2020-01-15] MEDS: DOCUSATE SODIUM 100 MG (COLACE) CAP PO SCH (09:43)
== END 2020-01-15 10:45 | disposition home or self-care (01) | DRG 787 ==
LOC: LDRP 18:45
PROVIDERS: ADMIT Obstetrics & Gynecology; ATTEND Obstetrics & Gynecology
PROC: 3E0DXGC Introduction of Other Therapeutic Substance into Mouth and Pharynx, External Approach (ICD-10-PCS; 2020-01-12)
PROC: 10D00Z1 Extraction of Products of Conception, Low, Open Approach (ICD-10-PCS; principal; 2020-01-13 13:44)
DX: O48.0 Post-term pregnancy (principal); D62 Acute posthemorrhagic anemia; O36.8330 Maternal care for abnormalities of the fetal heart rate or rhythm, third trimester, not applicable or unspecified; Z3A.40 40 weeks gestation of pregnancy; Z37.0 Single live birth; O90.81 Anemia of the puerperium; Z23 Encounter for immunization
CPT/HCPCS: 36415; 83033; 85025; 86850; 86870; 86900; 86901; 90686; 94664